=== PATIENT | female | born 1960 | race Caucasian/White ===

== ENCOUNTER → 2016-11-01 | Outpatient (CLI) | payer BC ==
[~2016-11-01] MED LIST: BACLOFEN10 MG PO; HCTZ PO; KCL PO; LASIX PO; NASONEX17 GM; PREDNISONE PO; PROZAC PO; TOPAMAX PO; TYLENOL #3 PO; ULTRAM PO; ZITHROMAX PO; [UNRECOGNIZED DRUG - OTHER] PO
--- NOTE | ~2016-11-01 | CT57 ---
[facility] A Service of [facility] & [facility] RADIOLOGY TEXT RESULTS PATIENT: BINA CARRILLO [facility] UN[facility] #: [id number] AGE: [address]: Tobin Hopkins MD SEX: F ORDER DR: [id number] [facility] [address] [place], [place] [address] [id number] O MR#: [id number] Acc #: [id number] NAME: BINA CARRILLO : 1960 SEX: F STUDY DATE/TIME: 11/01/2016 9:49 UNIT: [facility] ROOM: STUDY DESCRIPTION: CT Chest Wo Cont Attending Physician: Tobin Hopkins M.D. Referring Physician: Tobin Hopkins M.D. Ordering Physician: Tobin Hopkins M.D. Primary Care Physician: Jeanne Rea M.D. MEDICAL IMAGING REPORT This report is preliminary unless electronic signature is present EXAM High-resolution CT chest without contrast, 11/01/2016 HISTORY Physician's order states interstitial lung disease. Patient states cough for 2 years. COMPARISON High-resolution CT chest 11/09/2015 and 05/03/2015. High-resolution CT chest 01/05/2015. PROCEDURE 1.0 mm axial images were obtained at 2.0 mm increments through the chest without contrast per high-resolution protocol. Prone images were obtained through the lung bases. Expiratory phase imaging was obtained at the arch, yariel, and bases. 5.0 mm helical images were obtained to account for respiratory motion degradation. TECHNIQUE This CT exam was performed with one or more of the following radiation dose reduction techniques: automatic exposure control, adjustment of mA and/or kV according to patient size, and iterative reconstruction. FINDINGS Moderate centrilobular emphysematous changes are present. Fine interstitial interlobular and intralobular septal thickening is seen predominately in the inferior bilateral upper lobes, right middle lobe, superior right lower lobe. There are superimposed ground-glass opacities within both lungs, again predominately in the inferior upper lobes and right middle lobe, without focal consolidation. No evidence of sukhi honeycombing fibrosis. There is mild cylindrical bronchiectasis centrally in both lungs, without mucous plugging or abnormal bronchial wall thickening. There is suggestion of air trapping on expiratory phase STS. [facility] A Service of [facility] & [facility] RADIOLOGY TEXT RESULTS PATIENT: [facility]INA [facility]LL[id number] : 62 UNIT #: [id number] AGE: [address]: Tobin Hopkins MD SEX: F ORDER DR: imaging. There is some reversible atelectasis in lung bases on prone imaging. No acute lung consolidations are identified. 7.0 mm noncalcified nodule posterior right upper lobe (series 11, image 12) and a 4.0 mm nodule in the inferior right upper lobe above the minor fissure (series 11, image 30) are unchanged compared to 01/05/2015, confirming nearly 2 years of stability and suggesting a benign etiology. No new pulmonary nodules are identified. Heart size is within normal limits. No pericardial effusion, pleural effusion or pathologic adenopathy is identified. Liver is mildly steatotic. Cholecystectomy changes are present. IMPRESSION 1. Features of mild interstitial fibrosis predominately in the mid to upper lung zones. Ground-glass densities in the same vicinity, thought to represent chronic mild fibrotic changes. The findings appear improved when compared to a more remote CT chest from 05/03/2015. 2. There is no evidence of honeycombing fibrosis or evidence of usual interstitial pneumonia. 3. No acute airspace disease changes are identified. 4. Stable 7.0 mm and 4.0 mm right upper lobe pulmonary nodules since December 2014. This indicates almost 2 years of stability, suggesting benign etiology. No new pulmonary nodules are seen. 5. Stable mild central cylindrical bronchiectasis without abnormal bronchial wall thickening or mucous plugging. Dictated by... Kim Holcomb M.D. THIS IS AN ELECTRONICALLY VERIFIED REPORT Kim Holcomb M.D. at 11/03/2016 7:14 AM Lazaro TD: 11/01/2016 11:33 JOB #: [id number] MEDICAL IMAGING REPORT Page 1 of 1 COPY
== END | disposition home or self-care (01) ==
LOC: CCAT 09:14
DX: J98.4 Other disorders of lung (principal); J84.10 Pulmonary fibrosis, unspecified; J47.9 Bronchiectasis, uncomplicated
CPT/HCPCS: 71250